=== PATIENT | female | born 1955 | race Two or more races ===

== ENCOUNTER 2021-10-23 17:54 | Emergency (ER) | payer OTHER ==
[~2021-10-23] VITALS: Ht 170.2 cm; Wt 77.1 kg
[2021-10-23] MEDS ORDERED: PREDNISONE10 M2 PO (17:59)
[2021-10-23] MEDS ORDERED: IBRANCE125 M1 PO (18:00)
[2021-10-23] MEDS ORDERED: CELEBREX200MG PO (18:00)
[2021-10-23] MEDS ORDERED: PRILOSEC OTC20 MG PO (18:01)
[2021-10-23] MEDS ORDERED: SINGULAIR4 M1 PO (18:01)
[2021-10-24] MEDS ORDERED: BACTRIM DS TAB1 EACH PO (00:20)
== END 2021-10-24 00:30 | disposition home or self-care (01) ==
LOC: ER 17:54
DX: N13.6 Pyonephrosis (principal); Z20.822 Contact with and (suspected) exposure to COVID-19

== ENCOUNTER 2021-12-26 11:02 | Outpatient (CLI) | payer OTHER ==
[~2021-12-26 11:02] MED LIST: BACTRIM DS TAB1 EACH PO; CELEBREX200MG PO; IBRANCE125 M1 PO; PREDNISONE10 M2 PO; PRILOSEC OTC20 MG PO; SINGULAIR4 M1 PO
== END 2021-12-26 16:17 | disposition home or self-care (01) ==
LOC: LAB 11:02
PROVIDERS: ATTEND Emergency Medicine
DX: C50.919 Malignant neoplasm of unspecified site of unspecified female breast (principal); D51.9 Vitamin B12 deficiency anemia, unspecified; J70.0 Acute pulmonary manifestations due to radiation; J91.0 Malignant pleural effusion

== ENCOUNTER 2021-12-28 11:08 | Outpatient (CLI) | payer OTHER | END 2021-12-28 11:14 | disposition home or self-care (01) | LOC: LAB 11:08 | PROVIDERS: ATTEND Emergency Medicine | DX: Z79.52 Long term (current) use of systemic steroids (principal) ==

== ENCOUNTER 2022-01-19 09:38 | Outpatient (CLI) | payer OTHER | END 2022-01-19 09:44 | disposition home or self-care (01) | LOC: LAB 09:38 | PROVIDERS: ATTEND Emergency Medicine | DX: E27.2 Addisonian crisis (principal) ==

== ENCOUNTER 2022-02-10 11:05 | Outpatient (CLI) | payer OTHER | END 2022-02-10 11:11 | disposition home or self-care (01) | LOC: LAB 11:05 | PROVIDERS: ATTEND Emergency Medicine | DX: C50.919 Malignant neoplasm of unspecified site of unspecified female breast (principal); D50.9 Iron deficiency anemia, unspecified; D51.9 Vitamin B12 deficiency anemia, unspecified; J70.0 Acute pulmonary manifestations due to radiation; J90 Pleural effusion, not elsewhere classified; N39.0 Urinary tract infection, site not specified ==

== ENCOUNTER 2022-03-24 12:53 | Outpatient (CLI) | payer OTHER | END 2022-03-24 13:22 | disposition home or self-care (01) | LOC: LAB 12:53 | PROVIDERS: ATTEND Surgery | DX: C50.919 Malignant neoplasm of unspecified site of unspecified female breast (principal); D51.9 Vitamin B12 deficiency anemia, unspecified; J70.0 Acute pulmonary manifestations due to radiation; J90 Pleural effusion, not elsewhere classified; Z79.52 Long term (current) use of systemic steroids ==

== ENCOUNTER 2022-04-20 08:09 | Outpatient (CLI) | payer OTHER | END 2022-04-20 08:18 | disposition home or self-care (01) | LOC: NUCLEAR 08:09 | PROVIDERS: ATTEND Internal Medicine | DX: C50.412 Malignant neoplasm of upper-outer quadrant of left female breast (principal); C78.2 Secondary malignant neoplasm of pleura; Z91.014 Allergy to mammalian meats; Z88.8 Allergy status to other drugs, medicaments and biological substances | CPT/HCPCS: 78816; A9552 ==

== ENCOUNTER → 2022-05-09 12:02 | Outpatient (CLI) | payer OTHER | END | disposition home or self-care (01) | LOC: LAB 12:02 | PROVIDERS: ATTEND Emergency Medicine | DX: C44.521 Squamous cell carcinoma of skin of breast (principal); D51.0 Vitamin B12 deficiency anemia due to intrinsic factor deficiency; J70.0 Acute pulmonary manifestations due to radiation; J90 Pleural effusion, not elsewhere classified ==

== ENCOUNTER 2022-06-22 09:57 | Outpatient (CLI) | payer OTHER | END 2022-06-22 10:25 | disposition home or self-care (01) | LOC: LAB 09:57 | PROVIDERS: ATTEND Emergency Medicine | DX: C50.019 Malignant neoplasm of nipple and areola, unspecified female breast (principal); J70.0 Acute pulmonary manifestations due to radiation; J91.0 Malignant pleural effusion; Z79.52 Long term (current) use of systemic steroids ==

== ENCOUNTER 2022-08-07 09:10 | Outpatient (CLI) | payer OTHER | END 2022-08-07 09:11 | disposition home or self-care (01) | LOC: NUCLEAR 09:10 | PROVIDERS: ATTEND Emergency Medicine | DX: J70.1 Chronic and other pulmonary manifestations due to radiation (principal); J91.0 Malignant pleural effusion; Z79.52 Long term (current) use of systemic steroids ==

== ENCOUNTER 2022-08-07 10:02 | Outpatient (CLI) | payer OTHER | END 2022-08-07 10:03 | disposition home or self-care (01) | LOC: LAB 10:02 | PROVIDERS: ATTEND Internal Medicine | DX: Z51.11 Encounter for antineoplastic chemotherapy (principal); C50.412 Malignant neoplasm of upper-outer quadrant of left female breast; C78.2 Secondary malignant neoplasm of pleura ==

== ENCOUNTER 2022-10-04 12:26 | Outpatient (CLI) | payer OTHER | END 2022-10-04 12:27 | disposition home or self-care (01) | LOC: LAB 12:26 | PROVIDERS: ATTEND Emergency Medicine | DX: C50.919 Malignant neoplasm of unspecified site of unspecified female breast (principal); D51.8 Other vitamin B12 deficiency anemias; J70.1 Chronic and other pulmonary manifestations due to radiation; J90 Pleural effusion, not elsewhere classified ==

== ENCOUNTER 2022-10-25 09:11 | Outpatient (CLI) | payer OTHER | END 2022-10-25 09:12 | disposition home or self-care (01) | LOC: NUCLEAR 09:11 | PROVIDERS: ATTEND Emergency Medicine | DX: C50.912 Malignant neoplasm of unspecified site of left female breast (principal); J70.0 Acute pulmonary manifestations due to radiation; J70.1 Chronic and other pulmonary manifestations due to radiation; J90 Pleural effusion, not elsewhere classified | CPT/HCPCS: 78815; A9552 ==

== ENCOUNTER 2022-10-26 12:15 | Day surgery (SDC) | payer OTHER | END 2022-10-26 21:41 | disposition home or self-care (01) | LOC: SURH 12:15 → CIR.AMB 12:15 → SURH 21:41 → CIR.AMB 21:41 → EDSTATUS 10-30 09:17 | PROVIDERS: ATTEND Surgery | DX: C50.912 Malignant neoplasm of unspecified site of left female breast (principal); C78.7 Secondary malignant neoplasm of liver and intrahepatic bile duct; N13.6 Pyonephrosis ==